=== PATIENT | female | born 1995 | race Caucasian/White ===

== ENCOUNTER 2017-11-13 10:55 | Emergency (ER) | payer OTHER, MEDICAID ==
[~2017-11-13] VITALS: Ht 170.2 cm; Wt 68.0 kg
[~2017-11-13 10:55] MED LIST: ACYCLOVIR 400400 MG PO; ALBUTEROL INH; ALLEGRA180 MG PO; AMOXICILLIN 50500 MG PO; AMOXICILLIN875 MG PO; AUGMENTIN 500-1 EACH PO; BACTRIM DS TAB1 EACH PO; BIRTH CONTROL PILL; HYDROCODON-ACE1 EAC7 PO; IBUPROFEN 800800 M1 PO; KEFLEX500 MG PO; LIDOCAINE 22 %/30 GM TOP; MEDROLDOSEPACK PO; METFORMIN HCL500 MG PO; MUCINEX D TABL1 EAC1 PO; NORCO 5-325 TA1 EACH PO; OXYCODONE HCL5 M1; PREDNISONE 20 M20 M1 PO; PRENATA CHEWAB1 EACH PO; PRENATAL; TRIAMCINOLONE A80 G2 TOP; TRINATE TABLET1 TAB; VENTOLIN HFA 1818 GM; VISTARIL 25 MG25 M1 PO; ZOFRAN4 MG PO; ZPAK PO
[2017-11-13] MEDS ORDERED: PRENATAL PO (11:04)
[2017-11-13 11:34] LABS: HEMATOCRIT 35.9 % (37.0-47.0); HEMOGLOBIN 12.3 gm/dL (12.0-15.0); MCH 31.4 pg (26.0-34.0); MCHC 34.2 g/dL (28.0-37.0); MCV 91.9 fL (80.0-100.0); MPV 8.5 fl. (7.2-11.1); NUCLEATED RBCS 0 /100WBC; PLATELET COUNT* 299 thou/uL (150-400); RBC 3.91 mil/uL (4.20-5.00); RDW-CV 12.6 % (10.5-14.5)
[2017-11-13 11:39] LABS: URINE BILIRUBIN NEGATIVE (Negative); URINE BLOOD 3+ (Negative); URINE CLARITY CLEAR; URINE COLOR YELLOW; URINE GLUCOSE-RANDOM NEGATIVE (Negative); URINE LEUKOCYTES-REFLEX NEGATIVE (Negative); URINE PROTEIN NEGATIVE (Negative); URINE SPECIFIC GRAVITY 1.015 (1.005-1.030); URINE UROBILINOGEN 0.2 E.U./dl (0.2-1.0)
[2017-11-13 11:42] LABS: ACETEST (KETONE CONFIRMATORY) Large (Negative); URINE KETONES 3+ (Negative); URINE NITRITE-REFLEX POSITIVE (Negative)
[2017-11-13 11:49] LABS: BACTERIA-REFLEX 1-9 Few /HPF (None Seen); CASTS None Seen /LPF (None Seen); CRYSTALS None Seen /LPF (None Seen); MUCUS None Seen strn/LPF (None Seen); SQUAMOUS 0-3 Few /LPF (0-3); URINE RBC >20 Many /HPF (0-2); URINE WBC-REFLEX 6-15 Few /HPF (0-5)
[2017-11-13 11:57] LABS: CALCIUM 8.7 mg/dL (8.5-10.1); CREATININE 0.6 mg/dL (0.6-1.3); POTASSIUM 4.1 mmol/L (3.5-5.1)
[2017-11-13 12:02] LABS: ABSOLUTE LYMPHOCYTES 1.1 thou/uL (0.8-5.3); ABSOLUTE MONOCYTES 0.3 thou/uL (0.0-1.2); ABSOLUTE NEUTROPHILS 12.6 thou/uL (1.6-8.1); ALBUMIN 2.5 g/dL (3.4-5.0); PLATELET ESTIMATE ADEQUATE; TOTAL BILIRUBIN 0.6 mg/dL (<0.1-1.0); TOTAL PROTEIN 6.1 g/dL (6.4-8.2)
[2017-11-13 12:03] LABS: ANISOCYTOSIS 1+; POIKILOCYTOSIS 1+
[2017-11-13] MEDS ORDERED: ZOFRAN ODT4 MG PO (12:10)
[2017-11-13] MEDS ORDERED: MACROBID 100 M100 M1 PO (12:10)
[2017-11-13 12:30] VITALS: BP 112/70
== END 2017-11-13 12:31 | disposition home or self-care (01) ==
LOC: M.ERS 10:55
PROVIDERS: Nurse Practitioner Family
DX: O21.2 Late vomiting of pregnancy (principal); O23.43 Unspecified infection of urinary tract in pregnancy, third trimester; O99.513 Diseases of the respiratory system complicating pregnancy, third trimester; O24.419 Gestational diabetes mellitus in pregnancy, unspecified control; Z86.14 Personal history of Methicillin resistant Staphylococcus aureus infection; Z3A.32 32 weeks gestation of pregnancy

== ENCOUNTER 2019-02-16 16:06 | Emergency (ER) | payer OTHER ==
[~2019-02-16] VITALS: Ht 167.6 cm; Wt 59.0 kg
[~2019-02-16 16:06] MED LIST changes: +MACROBID 100 M100 M1 PO; +PRENATAL PO; +ZOFRAN ODT4 MG PO
[2019-02-16] MEDS ORDERED: TRAZODONE HCL100 MG PO (16:19)
[2019-02-16] MEDS ORDERED: ZOLOFT50 MG PO (16:19)
[2019-02-16 16:42] LABS: URINE BILIRUBIN NEGATIVE (Negative); URINE BLOOD NEGATIVE (Negative); URINE CLARITY CLEAR; URINE COLOR YELLOW; URINE GLUCOSE-RANDOM 1+ (Negative); URINE KETONES NEGATIVE (Negative); URINE LEUKOCYTES-REFLEX NEGATIVE (Negative); URINE NITRITE-REFLEX NEGATIVE (Negative); URINE PROTEIN NEGATIVE (Negative); URINE UROBILINOGEN 0.2 E.U./dl (0.2-1.0)
[2019-02-16 16:50] LABS: ABSOLUTE BASOPHILS 0.1 thou/uL (0.0-0.2); ABSOLUTE LYMPHOCYTES 1.5 thou/uL (0.8-5.3); ABSOLUTE MONOCYTES 1.4 thou/uL (0.0-1.2); ABSOLUTE NEUTROPHILS 15.1 thou/uL (1.6-8.1); BASOPHILS 0.4 %; EOSINOPHILS 0.1 %; HEMATOCRIT 36.6 % (37.0-47.0); HEMOGLOBIN 12.6 gm/dL (12.0-15.0); LYMPHOCYTES 8.2 %; MCH 31.3 pg (26.0-34.0); MCHC 34.3 g/dL (28.0-37.0); MCV 91.2 fL (80.0-100.0); MONOCYTES 7.9 %; MPV 8.5 fl. (7.2-11.1); NUCLEATED RBCS 0 /100WBC; PLATELET COUNT* 339 thou/uL (150-400); POLYS 83.4 %; RBC 4.02 mil/uL (4.20-5.00); RDW-CV 12.8 % (10.5-14.5); WBC 18.1 thou/uL (4.0-11.0)
[2019-02-16 17:01] LABS: CREATININE 0.9 mg/dL (0.6-1.3); POTASSIUM 3.2 mmol/L (3.5-5.1)
[2019-02-16] MEDS ORDERED: AMOXICILLIN 50500 MG PO (17:33)
[2019-02-16 17:52] VITALS: BP 110/60
== END 2019-02-16 17:53 | disposition home or self-care (01) ==
LOC: M.ERS 16:06
PROVIDERS: Nurse Practitioner Family
DX: J03.90 Acute tonsillitis, unspecified (principal); J45.909 Unspecified asthma, uncomplicated; E11.9 Type 2 diabetes mellitus without complications